=== PATIENT | female | born 1960 | race Caucasian/White ===

== ENCOUNTER 2018-02-05 14:47 | Emergency (ER) | payer OTHER ==
--- NOTE | 2018-02-05 16:07 | EDPHY ---
H & P Time Seen by Provider: 02/05/18 15:22 Past Medical/Surgical History: CHIEF COMPLAINT: [Headache and delayed speech] HISTORY OF PRESENT ILLNESS: [The patient is a 57-year-old female brought here by her sister for evaluation of headache and delayed speech after ground level fall head injury and Monday morning which was 3 days ago. Patient is a 57-year- old female with no significant past medical history. She denies any drug or alcohol use. Nonsmoker. She states that on Monday morning she was in the kitchen and because her dogs were barking she quickly moved around the kitchen to get them to stop barking and she slipped on water that had dropped out of the dog bowl. She recalls falling and hitting the left side of her face and then bouncing off the floor hitting the right side of her face. There was no loss consciousness. She has felt nauseous and had a headache since then. She denies any numbness, paresthesias, arm weakness, neck pain, trouble walking, back pain, vision changes, ataxia. She has never had a stroke patient denies chest pain or shortness of breath. She is feeling well and had no prodrome before she slipped and fell. She has been resting for the last couple of days and feels improved from yesterday.] REVIEW OF SYSTEMS: Constitutional: No fever, no chills. Eyes: No discharge. ENT: No sore throat. Cardiovascular: No chest pain, no palpitations. Respiratory: No cough, no shortness of breath. Gastrointestinal: No abdominal pain, no vomiting. Genitourinary: No hematuria. Musculoskeletal: No back pain. Skin: No rashes. Neurological: No headache. Physical Exam: General Appearance: Alert and no distress. No acute distress. Alert and oriented to person place and time Eyes: Pupils equal and round no injection. Extraocular muscles intact Respiratory: Chest is nontender, lungs are clear to auscultation. Cardiac: regular rate and rhythm. Gastrointestinal: Abdomen is soft and nontender, no masses, bowel sounds normal. Musculoskeletal: Neck is supple and no midline tenderness. Normal dental alignment. No facial crepitus or deformity. A repeat examination patient again had no midline tenderness but did have slight tenderness approximately 1 cm off midline from C7/C8. There is no bony crepitus or step-off. Patient has full range of motion of the neck with no pain. Extremities have full range of motion and are nontender. Skin: No rashes or lesions. No ecchymosis or skin lesions [Neurologic exam: Alert and oriented x3, speech is delayed but organized. He answers questions appropriately. Cranial nerves grossly intact. Equal strength in bilateral upper extremities with no ulnar drift and equal grasp. Ambulatory without difficulty. No nystagmus.] DIFFERENTIAL DIAGNOSIS: After history and physical exam differential diagnosis was considered for [syncope, seizure, intracranial bleed, skull fracture, intoxication] Constitutional: Initial Vital Signs Temperature (C) 36.4 C 02/05/18 14:56 Heart Rate 87 02/05/18 14:56 Respiratory Rate 16 02/05/18 14:56 Blood Pressure 113/70 02/05/18 14:56 O2 Sat (%) 97 02/05/18 14:56 Allergies/Adverse Reactions: No Known Allergies Allergy (Unverified 02/05/18 14:55) Home Medications: Medication Instructions Recorded NK [No Known Home Meds] 02/05/18 Medical Decision Making - Diagnostics Imaging Results: Imaging Impressions Head CT 02/05/18 15:26 Impression: 1. Normal CT brain without contrast. 2. Left maxillary and sphenoid sinusitis. 3. No skull fracture Findings and recommendations discussed with Emergency Department physician, Robert MOREAU at 16:39 hour, 02/05/2018. Final report concurs with initial preliminary interpretation. Imaging: Discussed imaging studies w/ manager call center Radiologist, I viewed and interpreted images myself ED Course/Re-evaluation: A 57-year-old female here with delayed speech but alert and oriented with no focal neurologic findings or signs of skull fracture on exam 3 days after ground level fall. She is not on any blood thinners and denies any drug or alcohol use. CT scan shows no fracture or bleed. Patient's history and exam are most consistent with a postconcussive syndrome. On initial evaluation she declined neck pain and then on repeat evaluation at time of discharge patient to complain of neck pain on repeat exam she again had no midline tenderness but did have tenderness chest lateral of midline. I did offer a CT scan in the emergency room but she declined and would like to follow up with her primary care physician for re-evaluation and possible imaging. She and her sister both agree to close follow-up with the primary care physician and possible referral to concussion specialist if she is not quickly a improving. I am encouraged by her improvement from yesterday to today and sister agrees to keep a close eye on her over the next couple days. Differential Diagnosis: Intracranial bleed, skull fracture, facial bone fracture, orbital fracture, intoxication Departure - Departure Disposition: Home, Routine, Self-Care Clinical Impression: Post concussive syndrome, Cervical strain, acute Condition: Good Instructions: Post Concussion Syndrome (ED) Additional Instructions: Please follow up with her primary care physician next 24-48 hours for repeat evaluation. Return immediately to the ER for any worsening or worrisome symptoms. Use Tylenol as needed for pain. Referrals: Trice Juan MD [Primary Care Provider] - As per Instructions
[2018-02-05 17:28] VITALS: BP 115/76
== END 2018-02-05 17:28 | disposition home or self-care (01) ==
DX: S16.1XXA Strain of muscle, fascia and tendon at neck level, initial encounter (principal); F07.81 Postconcussional syndrome; G44.309 Post-traumatic headache, unspecified, not intractable; W01.198A Fall on same level from slipping, tripping and stumbling with subsequent striking against other object, initial encounter; Y92.000 Kitchen of unspecified non-institutional (private) residence as the place of occurrence of the external cause